=== PATIENT | male | born 1955 | race Caucasian/White ===

== ENCOUNTER 2016-04-09 10:06 | Emergency (ER) | payer BC ==
[~2016-04-09] VITALS: Ht 198.1 cm; Wt 136.1 kg
[2016-04-09 10:08] VITALS: BP 156/89
--- NOTE | 2016-04-09 10:41 | RADIOLOGY REPORT ---
EXAMINATION: XR HAND, RIGHT CLINICAL INFORMATION: Pain and swelling after crush injury COMPARISON: None TECHNIQUE: AP, lateral, and oblique views of the right hand. FINDINGS: There is an arrow pointing to the fifth digit. There is no fracture or dislocation identified. There is soft tissue swelling surrounding the fifth PIP joint. Alignment is anatomic. The joint spaces are well-maintained. No radiopaque foreign bodies are present in the soft tissues. IMPRESSION: No radiographic evidence of fracture or dislocation. There is soft tissue swelling surrounding the fifth PIP joint.
[2016-04-09] MEDS ORDERED: VIBRAMYCIN100 MG PO (12:21)
--- NOTE | 2016-04-09 12:22 | ED HAND/WRIST INJURY COMPLAINT ---
History of Present Illness General Chief Complaint: Hand or Wrist Injury Stated Complaint: R HAND INJURY Source: patient Exam Limitations: no limitations Vital Signs & Intake/Output Vital Signs & Intake/Output Vital Signs Date Time Temp Pulse Resp B/P Pulse O2 O2 Flow FiO2 Ox Delivery Rate 04/09 1008 97.1 90 16 156/89 98 Room Air Allergies Coded Allergies: NO KNOWN ALLERGIES (08/30/14) Reconcile Medications Doxycycline Hyclate (Vibramycin) 100 MG CAPSULE 1 CAP PO BID cellulitis Triage Note: STATES THAT SATURDAY HIS R HAND GOT CAUGHT BETWEEN BRICK WALL AND A KEG . SWELLING NOTED Triage Nurses Notes Reviewed? yes HPI: This patient is a 52-year-old male with a past medical history including diabetes who presented to the emergency department today for evaluation of right fifth finger swelling. The patient reported that on he was carrying a keg up stairs and jammed his finger in between a hard wall in the keg. He reported that since that time finger has been swelling and redness. The pain is 7 out of 10 and is throbbing. The pain is worse with movement. The patient denied any fevers or chills. No numbness or tingling in his extremity. The patient denied any wrist pain or elbow pain. No radiation of the pain. (FARIDA MCITNYRE PA-C) Past History Travel History Traveled to [place] past 21 day No Medical History Any Pertinent Medical History? see below for history Neurological: NONE EENT: NONE Cardiovascular: hypertension Respiratory: NONE Gastrointestinal: NONE Hepatic: NONE Renal: NONE Musculoskeletal: gout Psychiatric: NONE Endocrine: NONE Blood Disorders: NONE Cancer(s): NONE SENIOR PRODUCT CONSULTANT/Reproductive: NONE Surgical History Surgical History: TONSILLECTOMY Psychosocial History What is your primary language Luxembour[place] Tobacco Use: Current Daily Use Daily Tobacco Use Amount/Type: => 5 Cigarettes daily ETOH Use: denies use Illicit Drug Use: denies illicit drug use Family History Hx Contributory? No (FARIDA MCINTYRE PA-C) Review of Systems Review of Systems Constitutional: Reports: no symptoms. EENTM: Reports: no symptoms. Respiratory: Reports: no symptoms. Cardiovascular: Reports: no symptoms. GI: Reports: no symptoms. Genitourinary: Reports: no symptoms. Musculoskeletal: Reports: see HPI. Skin: Reports: see HPI. Neurological/Psychological: Reports: no symptoms. All Other Systems: Reviewed and Negative (FARIDA MCINTYRE PA-C) Physical Exam Physical Exam Hand Left: normal inspection, normal range of motion Hand Right: redness and edema PIP of the fifth digit. Range of motion limited of the fifth digit due to pain. Capillary refill less than 2 seconds. Radial pulse 2+ and strong. Normal sensation Comments: Well-developed well-nourished person in no acute distress HEENT: Head normocephalic, moist mucous membranes Neck: Supple, no lymphadenopathy Back: Normal gait Respiratory: No respiratory distress. Speaking in full sentences Extremities: No evidence of trauma. No bony or muscular deformities Neuro: Alert and oriented x3 Psych: Mood affect normal, normal memory normal judgment. Skin: Warm and dry, no rash on exposed skin (FARIDA MCINTYRE PA-C) Progress Differential Diagnosis: abscess, cellulitis, contusion, compartment syndrome, dislocation, fracture, gout, septic arthritis, sprain, tenosynovitis Plan of Care: This patient is a 60-year-old male who presented to the emergency department today for evaluation of right fifth digit pain, swelling, and redness after trauma to the area. X-ray showed no acute fractures or dislocations. There is circumferential edema and erythema around the PIP of the right PIP joint. Likely cellulitis. The patient is afebrile and all vital signs are stable. I explained this patient extensively the importance of keeping an eye on the injury, using the splint provided to him, taking the antibiotic by mouth as prescribed, and returning to the emergency department immediately for any worsening symptoms or spreading of redness. Stable for discharge home at this time. Diagnostic Imaging: Viewed by Me: Radiology Read. Discussed w/RAD: Radiology Read. Radiology Impression: PATIENT: DOLORES ARRINGTON PRESENT AGE: 60 PATIENT ACCOUNT NO: [id number] : 59 LOCATION: [facility] ORDERING PHYSICIAN: KRAIG MATTHEWS DO SERVICE DATE: 04/09/16 EXAM TYPE: RAD - XRY-HAND, RIGHT EXAMINATION: XR HAND, RIGHT CLINICAL INFORMATION: Pain and swelling after crush injury COMPARISON: None TECHNIQUE: AP, lateral, and oblique views of the right hand. FINDINGS: There is an arrow pointing to the fifth digit. There is no fracture or dislocation identified. There is soft tissue swelling surrounding the fifth PIP joint. Alignment is anatomic. The joint spaces are well-maintained. No radiopaque foreign bodies are present in the soft tissues. IMPRESSION: No radiographic evidence of fracture or dislocation. There is soft tissue swelling surrounding the fifth PIP joint. DICTATED BY: DONALD HERNANDEZ MD DATE/TIME DICTATED:04/09/161035 SUBSTATION DESIGN DRAFTSPERSON:ANNALEE DATE/TIME TRANSCRIBED:04/09/161035 CONFIDENTIAL, DO NOT COPY WITHOUT APPROPRIATE AUTHORIZATION. <Electronically signed in Other Vendor System> SIGNED BY: DONALD HERNANDEZ MD 04/09/16 1041 (FARIDA MCINTYRE PA-C) Departure Departure Disposition: HOME OR SELF CARE Condition: Stable Clinical Impression Primary Impression: Cellulitis Qualifiers: Site of cellulitis: extremity Site of cellulitis of extremity: finger Laterality: right Qualified Code: L03.011 - Cellulitis of right finger Referrals: MIKE CHAUDHARY,LUIS RODGERS MD,MARIANO (PCP/Family) Additional Instructions: Please take antibiotic as prescribed and for its full duration. Use the splint provided to here in the emergency Department for extra support your finger. Please call the orthopedic physician for follow-up. Return to the emergency room for any worsening symptoms, fevers, spreading of redness, increased swelling, or for any other concerns. Departure Forms: Customer Survey General Discharge Information Prescriptions: Current Visit Scripts Doxycycline Hyclate (Vibramycin) 1 CAP PO BID #20 CAP (FARIDA MCINTYRE PA-C) PA/ASSOCIATE PROFESSOR OF SURGERY Co-Sign Statement Statement: ED Attending supervision documentation- [] I saw and evaluated the patient. I have also reviewed all the pertinent lab results and diagnostic results. I agree with the findings and the plan of care as documented in the PA's/ASSOCIATE PROFESSOR OF SURGERY's documentation. [X] I have reviewed the ED Record and agree with the PA's/ASSOCIATE PROFESSOR OF SURGERY's documentation. [] Additions or exceptions (if any) to the PAs/ASSOCIATE PROFESSOR OF SURGERY's note and plan are summarized below: [] (KRAIG MATTHEWS DO)
== END 2016-04-09 12:30 ==
LOC: ERH 10:06
DX: L03.011 Cellulitis of right finger (principal); W23.1XXA Caught, crushed, jammed, or pinched between stationary objects, initial encounter
CPT/HCPCS: 73130-RT